=== PATIENT | female | born 2000 | race Asian ===

== ENCOUNTER 2023-09-11 20:16 | Emergency (ER) | payer BC, SELFPAY ==
[2023-09-11 20:17] VITALS: BP 118/74; PULSE 115; RESP 20; TEMP 38.6; O2SAT 99
[2023-09-11 20:26] VITALS: BP 124/76; PULSE 115; RESP 20; TEMP 38.6; O2SAT 99; BMI 21.9
--- NOTE | 2023-09-11 20:46 | ED.FEVER ---
HPI - Fever General Date Seen: 09/11/23 Chief Complaint: Fever Stated Complaint: fever of 104 Time Seen by Provider: 09/11/23 20:17 Source: patient Mode of arrival: ambulatory Limitations: no limitations History of Present Illness HPI Narrative: Patient is a 22-year-old female with a history of has in a presenting to the emergency department for a fever. She states fever started a couple days ago and overall her symptoms have been worse. Admits to muscle pain in her extremities. Has not had any nausea or vomiting but does states she has not had much of an appetite. Has had some mild dizziness but she states does seem slightly worse than her normal dizziness. She has been having issues with this since her concussion. Last took Tylenol 2 hours ago. Says fevers up to 104. She does have asthma feels mildly short of breath but has been using her inhalers. Denies headache, vision changes, diarrhea, constipation, weakness, numbness, vision changes Related Data Home Medications Medication Instructions Recorded Confirmed albuterol sulfate 1.25 mg/3 mL 1.25 mg continuous nebulization 09/11/23 09/11/23 solution for nebulization Q4H PRN benralizumab 30 mg/mL subcutaneous 30 mg subcut Q28D 09/11/23 09/11/23 auto-injector (Fasenra Pen) escitalopram oxalate 10 mg tablet 10 mg PO DAILY 09/11/23 09/11/23 fluticasone furoate 200 1 inh inhalation BID 09/11/23 09/11/23 mcg-vilanterol 25 mcg/dose inhalation powder levalbuterol tartrate 45 2 puff inhalation Q4H PRN wheezing 09/11/23 09/11/23 mcg/actuation aerosol inhaler montelukast 10 mg tablet 10 mg PO DAILY 09/11/23 09/11/23 Allergies Allergy/AdvReac Type Severity Reaction Status Date / Time No Known Drug Allergies Allergy Verified 09/11/23 20:32 Review of Systems Status of ROS Reports: 10 or more systems reviewed and unremarkable except as noted in History and below [facility] Medical History (Updated 09/11/23 @ 21:44 by Brian Jacinto, DO) Concussion ?S06.0XAA - Concussion with loss of consciousness status unknown, initial encounter (ICD-10) Asthma ?J45.909 - Unspecified asthma, uncomplicated (ICD-10) Surgical History (Updated 09/11/23 @ 20:58 by Tor Corbett RN) No significant past surgical history Social History Smoking Status: Never smoker Second hand tobacco smoke exposure: No How often do you have a drink containing alcohol: never How often do you have six or more drinks on one occasion: Never AUDIT-C Alcohol total score: 0 Non-prescribed substance use: denies use Exam Narrative Exam Narrative: Const: Well-nourished, Well-developed, in mild distress Eyes: PERRL, no conjunctival injection, and symmetrical lids HENT: Atraumatic external nose and ears. Moist mucous membranes. Neck: Symmetric, trachea midline, No thyromegaly. CVS: Tachycardic, No murmurs or gallops. Peripheral pulses 2+ and equal in all extremities RESP: Unlabored respiratory effort. Mild wheezing upper lobes GI: Nontender/Nondistended, No rebound or guarding. MSK:Extremities w/o deformity, Normal Active ROM Skin: Warm, Dry. No rashes or lesions. Neuro: Normal Muscle tone, No focal neurological deficits. Psych: Awake, Alert, & Oriented x3. Appropriate mood and affect. Const Vital Signs, click to edit/add: Vital Signs - 24 hr 09/11/23 20:17 09/11/23 20:26 Temperature 101.5 F H 101.5 F H Pulse Rate [Right Pulse Oximeter] 115 H 115 H Respiratory Rate 20 20 Blood Pressure [Left Arm] 118/74 Blood Pressure [Right Upper Arm] 124/76 Pulse Oximetry 99 99 Oxygen Delivery Method Room Air Room Air Course Vital Signs Vital signs: Initial Vital Signs Temperature 101.5 F H 09/11/23 20:17 Temperature Source Temporal Artery Scan 09/11/23 20:17 Pulse Rate 115 H 09/11/23 20:17 Pulse Rhythm Regular 09/11/23 20:17 Pulse Strength 3+ Normal 09/11/23 20:17 Respiratory Rate 20 09/11/23 20:17 Respiratory Effort Normal, Spontaneous, Non-Labored 09/11/23 20:17 Respiratory Depth Normal 09/11/23 20:17 Respiratory Pattern Normal 09/11/23 20:17 Blood Pressure 118/74 09/11/23 20:17 Blood Pressure Mean 88 09/11/23 20:17 Blood Pressure Position Sitting 09/11/23 20:17 Pulse Oximetry 99 09/11/23 20:17 Oxygen Delivery Method Room Air 09/11/23 20:17 Sepsis Recent Fever Within 48 Hours No 09/11/23 20:17 Sepsis New/Unexplained Change in Mental Status No 09/11/23 20:17 Sepsis Action Taken by Nursing No Action Required 09/11/23 20:17 Vital Signs Temperature 101.5 F H 09/11/23 20:17 Pulse Rate 115 H 09/11/23 20:17 Respiratory Rate 20 09/11/23 20:17 Blood Pressure 118/74 09/11/23 20:17 Pulse Oximetry 99 09/11/23 20:17 Oxygen Delivery Method Room Air 09/11/23 20:17 Temperature 101.5 F H 09/11/23 20:26 Pulse Rate 115 H 09/11/23 20:26 Respiratory Rate 20 09/11/23 20:26 Blood Pressure 124/76 09/11/23 20:26 Pulse Oximetry 99 09/11/23 20:26 Oxygen Delivery Method Room Air 09/11/23 20:26 Medications Administered Medications: Discontinued Medications Generic Name Dose Route Start Last Admin Trade Name Freq PRN Reason Stop Dose Admin Albuterol 2.5 mg 09/11/23 20:43 09/11/23 20:47 Albuterol Sulfate 2.5 Mg/3 Ml Vial.Neb NEB 09/11/23 20:44 2.5 mg ONCE ONE Administration Meclizine HCl 25 mg 09/11/23 20:43 09/11/23 20:47 Meclizine Hcl 25 Mg Tablet PO 09/11/23 20:44 25 mg ONCE ONE Administration MDM - Fever MDM Narrative Medical decision making narrative: Patient is a 22-year-old female presenting to emergency department for a fever. She does having some dizziness but has had issues with this since a concussion. Seems worse today meclizine was given. She likely has some kind of viral syndrome and this is causing some dehydration and her dizziness. She also had some mild wheezing in around of albuterol was given. She declined ibuprofen at this time. I do not believe imaging is necessary as she is otherwise doing well. COVID/flu/RSV test was ordered and she is positive for influenza. Symptoms have been going on for over 48 hours and she is otherwise doing well so Tamiflu is not indicated. I offered her meclizine to go home with but she says she does not feel like she needs it. Patient will be discharged home and she is agreeable to this plan. Lab Data Labs: Lab Results 09/11/23 Range/Units 20:22 SARS-CoV-2 (PCR) Negative SARS-CoV-2 (Negative) Influenza Type A (PCR) POSITIVE PCR FLU A A (Negative) Influenza Type B (PCR) Negative PCR FLU B (Negative) RSV (PCR) Negative PCR RSV (Negative) Discharge Plan Discharge Clinical Impression: Influenza Patient Disposition: Home, Self-Care Condition: Improved Instructions: Influenza (DC) Additional Instructions: Follow-up with the primary care provider if symptoms are persisting for multiple weeks. Return to emergency department for new or worsening symptoms. Prescriptions: No Action escitalopram oxalate 10 mg tablet 10 mg PO DAILY fluticasone furoate-vilanterol 200-25 mcg/dose blister with device 1 inh inhalation BID albuterol sulfate 1.25 mg/3 mL solution for nebulization 1.25 mg continuous nebulization Q4H PRN Patient Comments: ONE PREMIXED VIAL BY NEBULIZER UP TO 4 TIMES A DAY IF NEEDED FOR QUICK RELIEF ONLY Fasenra Pen 30 mg/mL auto-injector 30 mg subcut Q28D montelukast 10 mg tablet 10 mg PO DAILY levalbuterol tartrate 45 mcg/actuation HFA aerosol inhaler 2 puff INHALATION Q4H PRN (Reason: wheezing) Follow Up/Referrals: Howie Vinson MD [Primary Care Provider] - Stand Alone Forms: [employer] Paymentth Info Instructions
[2023-09-11] MEDS: ALBUTEROL SULFATE 2.5 MG/3 ML VIAL.NEB NEB (20:47)
[2023-09-11] MEDS: MECLIZINE HCL 25 MG TABLET PO (20:47)
[2023-09-11 21:07] LABS: PCR FLU A POSITIVE PCR FLU A (Negative); PCR FLU B Negative PCR FLU B (Negative); PCR RSV Negative PCR RSV (Negative); SARS PCR* Negative SARS-CoV-2 (Negative)
--- OUTSIDE RECORDS SUMMARY | 2023-09-11 21:16 | XMS_ITS | Continuity of Care Document ---
Author Name Unknown Organization [facility] Address [address] [place] [address] Care Team Providers Care Seismic Prospecting Observer Name Role Phone Irma Fulton MD Primary Care Physician [phone] Encounter [facility] [id number] Date(s): 04/01/23 - 04/01/23 [facility] [address] [place] [address] Discharge Disposition: Home Allergies, Adverse Reactions, Alerts Substance Reaction Severity Status piperacillin Unknown Active acyclovir topical Unknown Active nuts Moderate Active Assessment and Plan Future Scheduled Tests Referral* Follow Up [facility] [employer] 01/30/23 * Follow Up Pulmonary 07/10/22 * Follow Up [employer] [employer] [facility] 01/17/24 Immunizations Given and Recorded Vaccine Date Status Refusal Reason pneumococcal 23-valent vaccine 02/22/20 Given pneumococcal 23-valent vaccine 1 11/05/10 Given pneumococcal 23-valent vaccine 2 10/28/06 Given meningococcal group B vaccine 02/22/20 Given meningococcal group B vaccine 01/21/20 Given influenza virus vaccine, inactivated 05/28/19 Give n influenza virus vaccine, inactivated 05/28/19 Give n influenza virus vaccine, inactivated 3 08/02/17 Gi angelika influenza virus vaccine, inactivated 4 05/29/12 Gi angelika influenza virus vaccine, inactivated 5 04/22/11 Gi angelika influenza virus vaccine, inactivated 6 06/08/10 Gi angelika influenza virus vaccine, inactivated 7 04/29/08 Gi angelika influenza virus vaccine, inactivated 8 05/09/07 Gi angelika influenza virus vaccine, inactivated 9 05/08/06 Gi angelika influenza virus vaccine, inactivated 10 05/01/05 G iven influenza virus vaccine, inactivated 11 05/10/04 G iven human papillomavirus vaccine 12 11/06/16 Given human papillomavirus vaccine 13 01/19/16 Given human papillomavirus vaccine 14 10/31/15 Given meningococcal conjugate vaccine 15 11/06/16 Given meningococcal polysaccharide vaccine 16 11/11/11 G iven tetanus/diphtheria/pertussis, acel (Tdap 17 11/11/11 Given pneumococcal 13-valent vaccine 18 11/05/10 Given varicella virus vaccine 19 10/28/06 Given varicella virus vaccine 20 01/20/02 Given haemophilus b conjugate (HbOC) vaccine 21 09/30/05 Given haemophilus b conjugate (HbOC) vaccine 22 04/20/01 Given haemophilus b conjugate (HbOC) vaccine 23 02/13/01 Given measles/mumps/rubella virus vaccine 24 11/16/04 Gi angelika measles/mumps/rubella virus vaccine 25 10/20/01 Gi angelika diphtheria/tetanus/pertussis (DTaP) ped 26 11/16/04 Given diphtheria/tetanus/pertussis (DTaP) ped 27 04/14/02 Given diphtheria/tetanus/pertussis (DTaP) ped 28 04/20/01 Given diphtheria/tetanus/pertussis (DTaP) ped 29 02/13/01 Given diphtheria/tetanus/pertussis (DTaP) ped 30 00 Given poliovirus vaccine, inactivated 31 11/16/04 Given poliovirus vaccine, inactivated 32 04/14/02 Given poliovirus vaccine, inactivated 33 03/17/01 Given poliovirus vaccine, inactivated 34 01/12/01 Given hepatitis A pediatric vaccine 35 12/07/03 Given hepatitis A pediatric vaccine 36 12/07/02 Given palivizumab 37 11/08/02 Given palivizumab 38 10/08/02 Given palivizumab 39 09/10/02 Given palivizumab 40 08/06/02 Given palivizumab 41 07/09/02 Given palivizumab 42 06/11/02 Given palivizumab 43 05/12/02 Given pneumococcal 7-valent vaccine 44 04/14/02 Given hepatitis B pediatric vaccine 45 08/07/01 Given hepatitis B pediatric vaccine 46 03/17/01 Given hepatitis B pediatric vaccine 47 00 Given haemophilus b conjugate (PRP-T) vaccine 48 00 Given 1Result Comment: Administration Provider: System, System 2Result Comment: Administration Provider: System, System 3Result Comment: Administration Provider: System, System 4Result Comment: Administration Provider: System, System 5Result Comment: Administration Provider: System, System 6Result Comment: Administration Provider: System, System 7Result Comment: Administration Provider: System, System 8Result Comment: Administration Provider: System, System 9Result Comment: Administration Provider: System, System 10Result Comment: Administration Provider: System, System 11Result Comment: Administration Provider: System, System 12Result Comment: Performed by:YIMI George Fenika 13Result Comment: Performed by:YIMI George Fenika 14Result Comment: Performed by:YIMI George Fenika 15Result Comment: Performed by:YIMI George Fenika 16Result Comment: Administration Provider: System, System 17Result Comment: Administration Provider: System, System 18Result Comment: Administration Provider: System, System 19Result Comment: Administration Provider: System, System 20Result Comment: Administration Provider: System, System 21Result Comment: Administration Provider: System, System 22Result Comment: Administration Provider: System, System 23Result Comment: Administration Provider: System, System 24Result Comment: Administration Provider: System, System 25Result Comment: Administration Provider: System, System 26Result Comment: Administration Provider: System, System 27Result Comment: Administration Provider: System, System 28Result Comment: Administration Provider: System, System 29Result Comment: Administration Provider: System, System 30Result Comment: Administration Provider: System, System 31Result Comment: Administration Provider: System, System 32Result Comment: Administration Provider: System, System 33Result Comment: Administration Provider: System, System 34Result Comment: Administration Provider: System, System 35Result Comment: Administration Provider: System, System 36Result Comment: Administration Provider: System, System 37Result Comment: Administration Provider: System, System 38Result Comment: Administration Provider: System, System 39Result Comment: Administration Provider: System, System 40Result Comment: Administration Provider: System, System 41Result Comment: Administration Provider: System, System 42Result Comment: Administration Provider: System, System 43Result Comment: Administration Provider: System, System 44Result Comment: Administration Provider: System, System 45Result Comment: Administration Provider: System, System 46Result Comment: Administration Provider: System, System 47Result Comment: Administration Provider: System, System 48Result Comment: Administration Provider: System, System Medications Augmentin 875 mg-125 mg oral tablet 1 tab(s) Dosing ingredient: amoxicillin (as trihydrate), PO, q12hrs, # 14 tab(s), 0 Refill(s), Substitution Permitted, Pharmacy: [facility] [id number] [facility], 1 tab(s) PO q12hrs Start Date: 08/02/20 Status: Ordered Breo Ellipta 200 mcg-25 mcg/inh inhalation powder 1 puff(s), inhaled, daily, # 3 each, 0 Refill(s), Substitution Permitted, Pharmacy: [facility] [id number] [facility], 1 puff(s) inhaled daily, 62, 07/19/21 14:56:00 PST, HEIGHT, inch(es), 50.6, 07/19/21 14:56:00 PST, WEIGHT, kg Start Date: 10/29/22 Status: Ordered budesonide 0.5 mg/2 mL inhalation suspension See Instructions, Instructions: INAHALE 2 ML VIA NEBULIZER TWICE DAILY, # 120 mL, 0 Refill(s), Substitution Permitted, Pharmacy: [facility] [id number] [facility], INAHALE 2 ML VIA NEBULIZER TWICE DAILY, 62, 07/19/21 14:56:00 PST, HEIGHT, inch(es), 50.6, 07/19/21 14:56:00 PST, WEIGHT, kg Start Date: 08/13/21 Status: Ordered escitalopram 10 mg oral tablet 10 mg = 1 tab(s), PO, daily, # 30 tab(s), 0 Refill(s), Substitution Permitted Start Date: 07/19/21 Status: Ordered Fasenra Pen 30 mg/mL subcutaneous solution 0 Refill(s), Substitution Permitted Start Date: 07/19/21 Status: Ordered levalbuterol 45 mcg/inh inhalation aerosol 2 puff(s), inhaled, q4h, # 15 gm, 2 Refill(s), Substitution Permitted, Pharmacy: [facility] [id number] [facility], 2 puff(s) inhaled q4h, 62, 07/19/21 14:56:00 PST, HEIGHT, inch(es), 53.63, 02/10/23 16:15:00 PDT,kg, WEIGHT Start Date: 04/01/23 Status: Ordered Lo Loestrin Fe oral tablet 1 tab(s), PO, daily, # 84 tab(s), 3 Refill(s), MAXWELL, Pharmacy: [facility] [id number] [facility], 1 tab(s) PO daily, 62, 07/19/21 14:56:00 PST, HEIGHT, inch(es), 53.63, 02/10/23 16:15:00 PDT, WEIGHT, kg Start Date: 02/10/23 Status: Ordered Ritalin 5 mg oral tablet 5 mg = 1 tab(s), PO, 2xdaily, # 60 tab(s), 0 Refill(s), Substitution Permitted, Pharmacy: [id number], 1 tab(s) PO 2xdaily Start Date: 09/10/19 Status: Ordered Singulair 10 mg oral tablet 10 mg = 1 tab(s), PO, daily, # 90 tab(s), 0 Refill(s), Substitution Permitted, Pharmacy: [facility] [id number] [facility], 1 tab(s) PO daily, 62, 07/19/21 14:56:00 PST, HEIGHT, inch(es), 50.6, 07/19/21 14:56:00 PST, WEIGHT, kg Start Date: 10/29/22 Status: Ordered Problem List Condition Confirmation Course Effective Dates Status H ealth Status Informant Anxiety Confirmed Active Asthma Confirmed Active Attention deficit hyperactivity disorder 1 Confirmed 07/07/20 Active 1Outside Source Comment: Overview: takes ritalin once / day has been on it since 5th grade usually only takes during school days no changes in dosage. no difficulty with sleep. tolerating Social History Social History Type Response Smoking Status Never (less than 100 in lifetime); Tobacco Used Last 365 Days No entered on: 01/16/23 Sex Female Patient Care team information Care Team Personnel Name: MD Ozuna Soha A Position: Ambulatory Physician - CHOCOLATE REFINING ROLLER Member Role: OBGYN Address: Address: Miladys Ozuna MD [address] [place] [address]- Name: MD Fulton Lettie Member Role: Attributed Physician Address: Address: Irma Fulton MD [facility] [address], [address] [place] [address]- [place]
--- OUTSIDE RECORDS SUMMARY | 2023-09-11 21:16 | XMS_ITS ---
Author Name Unknown Organization [facility] Address [address] [place] [address] Care Team Providers Care Rn Clinician Name Role Phone Irma Fulton MD Primary Care Physician Encounter [facility] [address] [id number] Date(s): 10/28/22 - 10/28/22 [facility] [address] [place] [id number] [place] Discharge Disposition: Home Problem List Condition Confirmation Course Effective Dates Status Health St atus Informant Asthma Confirmed Active Allergies, Adverse Reactions, Alerts No Known Medication Allergies Substance Reaction Severity Status nuts Moderate Active Medications Augmentin 875 mg-125 mg oral tablet 1 tab(s) Dosing ingredient: amoxicillin (as trihydrate), PO, q12hrs, # 14 tab(s), 0 Refill(s), Substitution Permitted, Pharmacy: [facility] [id number] [facility], 1 tab(s) PO q12hrs Start Date: 08/02/20 Status: Ordered Breo Ellipta 200 mcg-25 mcg/inh inhalation powder 1 puff(s), inhaled, daily, # 3 each, 0 Refill(s), Substitution Permitted, Pharmacy: [facility] [id number] [facility], 1 puff(s) inhaled daily, 62, 07/19/21 14:56:00 PST, HEIGHT, inch(es), 50.6, 07/19/21 14:56:00 PST, WEIGHT, kg Start Date: 10/28/22 Status: Ordered budesonide 0.5 mg/2 mL inhalation suspension See Instructions, Instructions: INAHALE 2 ML VIA NEBULIZER TWICE DAILY, # 120 mL, 0 Refill(s), Substitution Permitted, Pharmacy: [facility] [id number] [facility], INAHALE 2 ML VIA NEBULIZER TWICE DAILY, 62, 07/19/21 14:56:00 PST, HEIGHT, inch(es), 50.6, 07/19/21 1... Start Date: 08/13/21 Status: Ordered escitalopram 10 mg oral tablet 10 mg = 1 tab(s), PO, daily, # 30 tab(s), 0 Refill(s), Substitution Permitted Start Date: 07/19/21 Status: Ordered Fasenra Pen 30 mg/mL subcutaneous solution 0 Refill(s), Substitution Permitted Start Date: 07/19/21 Status: Ordered Ritalin 5 mg oral tablet 5 mg = 1 tab(s), PO, 2xdaily, # 60 tab(s), 0 Refill(s), Substitution Permitted, Pharmacy: [facility] [id number], 1 tab(s) PO 2xdaily Start Date: 09/10/19 Status: Ordered Singulair 10 mg oral tablet 10 mg = 1 tab(s), PO, daily, # 90 tab(s), 0 Refill(s), Substitution Permitted, Pharmacy: [facility] [id number] [facility], 1 tab(s) PO daily, 62, 07/19/21 14:56:00 PST, HEIGHT, inch(es), 50.6, 07/19/21 14:56:00 PST, WEIGHT, kg Start Date: 10/28/22 Status: Ordered Xopenex 1.25 mg/3 mL inhalation solution 1.25 mg = 3 mL, NEB, 3xdaily, PRN shortness of breath or wheezing, # 270 each, 0 Refill(s), Substitution Permitted, Pharmacy: [facility] [id number] [facility], 3 mL NEB 3xdaily,PRN:shortness of breath or wheezing, 62, 01/21/20 14:22:00 PDT, HEIGHT, inch(es), 48.7,... Start Date: 07/12/21 Status: Ordered Xopenex HFA 45 mcg/inh inhalation aerosol 2 puff(s), inhaled, q4h, # 15 gm, 2 Refill(s), Substitution Permitted, 62, 07/19/21 14:56:00 PST, HEIGHT, inch(es), 50.6, 07/19/21 14:56:00 PST, kg, WEIGHT Start Date: 02/07/22 Status: Ordered Immunizations Given and Recorded Vaccine Date Status [...] 05/09/07 Gi angelika influenza virus vaccine, inactivated 05/08/06 Gi angelika influenza virus vaccine, inactivated [...] System 48Result Comment: Administration Provider: System, System Social History Social History Type Response
--- OUTSIDE RECORDS SUMMARY | 2023-09-11 21:16 | XMS_ITS | Continuity of Care Document ---
Author Name Unknown Organization [facility] Address [address] [place] [address]- Care Team Providers Care Finger Waver Name Role Phone Irma Fulton MD Primary Care Physician Encounter [facility] [id number] Date(s): 01/16/23 - 01/16/23 [facility] [address] [place] [address]- Discharge Disposition: Home Attending Physician: MD Ozuna Soha A Admitting Physician: MD Ozuna Soha A Allergies, Adverse Reactions, Alerts Substance Reaction Severity Status piperacillin Unknown Active acyclovir topical Unknown Active nuts Moderate Active Assessment and Plan Future Appointments Appointment Date:02/10/2023 03:45:00 PM Scheduled Provider:MD Ozuna Soha A Location:[facility] Appointment Type: BUILDING ILLUMINATING ENGINEER Ultrasound Diagnostic Tests Pending * Testosterone Total + Free 01/16/23 Future Scheduled Tests Referral* Follow Up BUILDING ILLUMINATING ENGINEER Women's Health 01/30/23 * Follow Up Pulmonary 01/17/22 * Follow Up Pulmonary 07/10/22 * Follow Up BUILDING ILLUMINATING ENGINEER Women's Health [facility] 01/17/24 Immunizations Given [...] System, System 12Result Comment: Performed by:YIMI George Fenvincent 13Result Comment: Performed by:YIMI George Fenvincent 14Result Comment: Performed by:YIMI George Fenvincent 15Result Comment: Performed by:YIMI George Fenvincent 16Result Comment: Administration Provider: System, System 17Result [...] 14 tab(s), 0 Refill(s), Substitution Permitted, Pharmacy: [facility] [id number] [facility], 1 tab(s) PO q12hrs Start Date: 08/02/20 Status: Ordered Breo Ellipta 200 mcg-25 mcg/inh inhalation powder 1 puff(s), inhaled, daily, # 3 each, 0 Refill(s), Substitution Permitted, Pharmacy: [facility] [id number] [facility], 1 puff(s) inhaled daily, 62, 07/19/21 14:56:00 PST, HEIGHT, inch(es), 50.6, 07/19/21 14:56:00 PST, WEIGHT, kg Start Date: 10/29/22 Status: Ordered budesonide 0.5 mg/2 mL inhalation suspension See Instructions, Instructions: INAHALE 2 ML VIA NEBULIZER TWICE DAILY, # 120 mL, 0 Refill(s), Substitution Permitted, Pharmacy: [facility] [id number] [facility], INAHALE 2 ML VIA NEBULIZER [...] 60 tab(s), 0 Refill(s), Substitution Permitted, Pharmacy: [facility] [id number], 1 tab(s) PO 2xdaily Start Date: 09/10/19 Status: Ordered Singulair 10 mg oral tablet 10 mg = 1 tab(s), PO, daily, # 90 tab(s), 0 Refill(s), Substitution Permitted, Pharmacy: [facility] [id number] [facility], 1 tab(s) PO daily, 62, 07/19/21 14:56:00 PST, HEIGHT, inch(es), 50.6, 07/19/21 14:56:00 PST, WEIGHT, kg Start Date: 10/29/22 Status: Ordered Xopenex 1.25 mg/3 mL inhalation solution 1.25 mg = 3 mL, NEB, 3xdaily, PRN shortness of breath or wheezing, # 270 each, 0 Refill(s), Substitution Permitted, Pharmacy: [facility] [id number] [facility], 3 mL NEB 3xdaily,PRN:shortness of breath or wheezing, 62, 01/21/20 14:22:00 PDT, HEIGHT, inch(es), 48.7,... Start Date: 07/12/21 Status: Ordered Xopenex HFA 45 mcg/inh inhalation aerosol 2 puff(s), inhaled, q4h, # 15 gm, 2 Refill(s), Substitution Permitted, 62, 07/19/21 14:56:00 PST, HEIGHT, inch(es), 50.6, 07/19/21 14:56:00 PST, kg, WEIGHT Start Date: 02/07/22 Status: Ordered Problem List Condition Confirmation Course Effective Dates Status H ealth Status Informant Anxiety Confirmed Active Asthma Confirmed Active Attention deficit hyperactivity disorder 1 Confirmed 07/07/20 Active 1Outside Source Comment: Overview: takes ritalin once / day has been on it since 5th grade usually only takes during school days no changes in dosage. no difficulty with sleep. tolerating Results Laboratory List Name Date Dehydroepiandrosterone Sulfate (DHEA Sul fate) 01/16/23 Estradiol Level 01/16/23 FSH (Follicle Stimulating Hormone) Hemoglobin A1c 01/16/23 LH (Luteinizing Hormone) 01/16/23 Prolactin 01/16/23 TSH (Thyroid Stimulating Hormone) 3 Most recent to oldest [Reference Range]: 1 TSH [0.350-4.940 micro-IntUnits/mL] 1.15 5 micro-IntUnits/mL (01/16/23 3:15 PM) FSH 6.50 cj-IntUnits/ mL *NA* (01/16/23 3:15 PM) Luteinizing Hormone (LH) 21.81 cj-Int Units/mL *NA* (01/16/23 3:15 PM) Prolactin 11.80 ng/mL *NA* (01/16/23 3:15 PM) DHEA Sulfate [83-377 mcg/dL] 202 mcg/dL 1 *NA* (01/16/23 3:15 PM) Estradiol 36.8 pg/mL 2 *NA* (01/16/23 3:15 PM) Hemoglobin A1c [4.8-6.0 %] 5.1 % (01/16/23 3:15 PM) 1Result Comment: Test Performed by: [facility] [place] [place] [address] Electrolog Operator: Todd Jean-Baptiste M.D. Ph.D.; CLIA# [id number] 2Result Comment: REFERENCE VALUE Premenopausal: 15-350 pg/mL Postmenopausal: <10 pg/mL Estradiol concentrations vary widely throughout the menstrual cycle. Test Performed by: [facility] [place] [address] Electrolog Operator: Todd Jean-Baptiste M.D. Ph.D.; CLIA# [id number] Social History Social History Type Response Smoking Status Never (less than 100 in lifetime); Tobacco Used Last 365 Days No entered on: 01/16/23 Sex Female Patient Care team information Care Team Personnel Name: MD Fulton Lettie Member Role: Attributed Physician Address: Address: Irma Fulton MD [facility] [address], [address] [place] [address]- Name: MD Ozuna Soha A Position: Ambulatory Physician - WAREHOUSE FOREMAN Member Role: OBGYN Address: Address: Miladys Ozuna MD [address] [place] [address] [place] [id number]
--- OUTSIDE RECORDS SUMMARY | 2023-09-11 21:16 | XMS_ITS ---
Author Name Awilda Pham Organization Unknown Care Team Providers Care Forest Ranger Technician Name Role Phone Awilda Pham Unavailable Unavailable Awilda Pham Unavailable Unavailable ALLERGIES * No known allergy CHIEF COMPLAINT * P/C: VRC: positive covid test FUNCTIONAL AND COGNITIVE STATUS * No functional and cogntive status documented IMMUNIZATIONS * No immunizations documented MEDICATIONS Medication Start Date Stop Date Modified Date Dose Formulation Route Frequency Status Pulmicort Respules Unknown 9 by jet nebbulizer with comby rectumessed air once a day active Xopenex Unknown 9 by nebulizer Up to every 6 hours for acute wheezing (may double dose if severe attack) active Xopenex 9 1.25 mg/3 mL solution for nebulization by nebulizer Up to every 6 hours for acute wheezing (may double dose if severe attack) active prednisone 9 20 mg tablet by mouth 3 tabs daily x 2 days, 2 tabs daily x 2 days, 1 tab daily x 2 days, 1/2 tab for 1 day active Paxlovid 03/15/2023 300 mg (150 mg x 2)-10 0 mg tablets,dose pack by mouth Follow blister pack instructions active albuterol sulfate 03/15/2023 1.25 mg/3 mL solution for nebulization by nebulizer Up to 4 times a day if needed for quick relief only active PLAN OF CARE * No plan of care documented PROBLEMS * No clinical problems documented PROCEDURES * No procedure documented REASON FOR REFERRAL No reason for referral documented REASON FOR VISIT Exam started at 12:30 03/15/2023. Have reviewed staff history and I concur. Have reviewed and agreewith staff notes. History comes from patient. Able to get a good history.Spoke to patient over virtual care visit. Patient is a healthy 22-year-old female with PMH of asthma and allergies with sx of cough, sore throat, body aches that started last night. h/o positive covid test today. Patient denies severe symptoms such as CP, SOB, dizziness. Patient is vaccinated against COVID. No hx of kidney issues. Patient is requesting Paxlovid. Patient takes Lexapro and Singular daily. Patient is requesting a refill on albuterol nebulized solution as well. RESULTS * No lab result documented SOCIAL HISTORY * No smoking status documented VITAL SIGNS * Height: 62 inch ENCOUNTERS * Covid 19 - confirmed by antigen screen * Sore throat * Cough * Asthma
--- OUTSIDE RECORDS SUMMARY | 2023-09-11 21:16 | XMS_ITS | Continuity of Care Document ---
Author Name Unknown Organization [facility] Address [address] [place] [address] Care Team Providers Care Welder Fitter Apprentice Name Role Phone Irma Fulton MD Primary Care Physician [phone] Encounter [facility] [id number] Date(s): 07/14/23 - 07/14/23 [facility] [address] [facility] [address] [place] [address] Encounter Diagnosis Asthma(Discharge Diagnosis) - 07/10/23 Body mass index [BMI] 22.0-22.9, adult(Discharge Diagnosis) - 07/14/23 Discharge Disposition: Home Attending Physician: MD Reyna Richard H Referring Physician: MD Reyna Richard H Allergies, Adverse Reactions, Alerts Substance Reaction Severity Status piperacillin Unknown Active acyclovir topical Unknown Active nuts Moderate Active Assessment and Plan Future Appointments Appointment Date:01/19/2024 11:00:00 AM Scheduled Provider:MD Reyna Richard H [facility] Pulmonary Appointment Type:PULM Follow Up Future Scheduled Tests Referral* Follow Up GENERATOR REBUILDER Women's Health 01/30/23 * Follow Up Pulmonary 07/10/22 * Follow Up Pulmonary 01/13/24 * Follow Up GENERATOR REBUILDER Women's Health [facility] 01/17/24 Immunizations Given [...] George Fenika 14Result Comment: Performed by:YIMI George Fenvincent 15Result [...] 48Result Comment: Administration Provider: System, System Medications albuterol 1.25 mg/3 mL (0.042%) inhalation solution See Instructions, Instructions: ONE PREMIXED VIAL BY NEBULIZER UP TO 4 TIMES A DAY IF NEEDED FOR QUICK RELIEF ONLY, # 75 mL, 0 Refill(s), Substitution Permitted, Pharmacy: [id number] [facility], PT NEEDS NEW RX, ONE PREMIXED VIAL BY NEBULIZER UP TO 4 TIMES A DAY IF NEEDED FOR QUICK RELIEF ONLY, 62, 07/19/21 14:56:00 PST, HEIGHT, inch(es), 53.63, 02/10/23 16:15:00 PDT, WEIGHT, kg Start Date: 06/25/23 Status: Ordered Augmentin 875 mg-125 mg oral tablet 1 tab(s) Dosing ingredient: amoxicillin (as trihydrate), PO, q12hrs, # 14 tab(s), 0 Refill(s), Substitution Permitted, Pharmacy: [facility] [id number] [facility], 1 tab(s) PO q12hrs Start Date: 08/02/20 Status: Ordered Breo Ellipta 200 mcg-25 mcg/inh inhalation powder 1 puff(s), inhaled, daily, # 3 each, 4 Refill(s), Substitution Permitted, Pharmacy: [facility] [id number] [facility], 1 puff(s) inhaled daily,x30 day(s), 62, 07/14/23 15:38:00 PST, HEIGHT, inch(es), 56, 07/14/23 15:38:00 PST, WEIGHT, kg Start Date: 07/14/23 Stop Date: 12/11/23 Status: Ordered budesonide 0.5 mg/2 mL inhalation suspension See Instructions, Instructions: INAHALE 2 ML VIA NEBULIZER TWICE DAILY, # 120 mL, 0 Refill(s), Substitution Permitted, Pharmacy: [facility] [id number] [facility], INAHALE 2 ML VIA NEBULIZER [...] mcg/inh inhalation aerosol 2 puff(s), inhaled, q4h, PRN PRN for wheezing, # 15 gm, 5 Refill(s), Substitution Permitted, Pharmacy: [facility] [id number] [facility], 2 puff(s) inhaled q4h,PRN:for wheezing, 62, 07/14/23 15:38:00 PST, HEIGHT, inch(es), 56, 07/14/23 15:38:00 PST, kg, WEIGHT Start Date: 07/14/23 Status: Ordered levalbuterol 45 mcg/inh inhalation aerosol 2 puff(s), inhaled, q4h, # 15 gm, 2 Refill(s), Substitution Permitted, Pharmacy: [facility] [id number] [facility], 2 puff(s) inhaled q4h, 62, 07/19/21 14:56:00 PST, HEIGHT, inch(es), 53.63, 02/10/23 16:15:00 PDT,kg, WEIGHT Start Date: 04/01/23 Status: Ordered Lo Loestrin Fe oral tablet 1 tab(s), PO, daily, # 84 tab(s), 3 Refill(s), [facility], Pharmacy: [id number], 1 tab(s) PO daily, 62, 07/19/21 14:56:00 PST, HEIGHT, inch(es), 53.63, 02/10/23 16:15:00 PDT, WEIGHT, kg Start Date: 02/10/23 Status: Ordered montelukast 10 mg oral tablet See Instructions, Instructions: TAKE 1 TABLET BY MOUTH EVERY DAY, # 90 tab(s), 4 Refill(s), Substitution Permitted, Pharmacy: [facility] [id number] [facility], TAKE 1 TABLET BY MOUTH EVERY DAY, 62, 07/14/23 15:38:00 PST, HEIGHT, inch(es), 56, 07/14/23 15:38:00 PST, WEIGHT, kg Start Date: 07/14/23 Status: Ordered Ritalin 5 mg oral tablet 5 mg = 1 tab(s), PO, 2xdaily, # 60 tab(s), 0 Refill(s), Substitution Permitted, Pharmacy: [facility] [id number], 1 tab(s) PO 2xdaily Start Date: 09/10/19 Status: Ordered Problem List Condition Confirmation Course Effective Dates Status H ealth Status Informant Anxiety Confirmed Active Asthma Confirmed Active Attention deficit hyperactivity disorder 1 Confirmed 07/07/20 Active 1Outside Source Comment: Overview: takes ritalin once / day has been on it since 5th grade usually only takes during school days no changes in dosage. no difficulty with sleep. tolerating Vital Signs Most recent to oldest [Reference Range]: 1 Blood Pressure [100-145/50-90 mmHg] 118/ 74mmHg (07/14/23 3:38 PM) Peripheral Pulse Rate [50-121 bpm] 75 bp m (07/14/23 3:38 PM) Oxygen Saturation [90-100 %] 98 % (07/14/23 3:38 PM) HEIGHT [36-86 inch(es)] 62 inch(es) (07/14/23 3:38 PM) WEIGHT [12-320 kg] 56 kg (07/14/23 3:38 PM) Social History Social History Type Response Smoking Status Never (less than 100 in lifetime); Tobacco Used Last 365 Days No entered on: 01/16/23 Sex Female Patient Care team information Care Team Personnel Name: MD Ozuna Soha A Position: Ambulatory Physician - MANUFACTURING TEST ENGINEER Member Role: OBGYN Address: Address: Miladys Ozuna MD [address] [place] [address] [place] [id number]- Name: MD Fulton Lettie Member Role: Attributed Physician Address: Address: Irma Fulton MD [facility] [address], [address] [place] [address]- [place]
--- OUTSIDE RECORDS SUMMARY | 2023-09-11 21:16 | XMS_ITS | Continuity of Care Document ---
Author Name Unknown Organization [facility] Address [address] [place] [address] Care Team Providers Care Bulldozer Mechanic Name Role Phone Irma Fulton MD Primary Care Physician Encounter [facility] [id number] Date(s): 02/10/23 - 02/10/23 [facility] [address] [place] [address] [place] Encounter Diagnosis PCOS (polycystic ovarian syndrome)(Discharge Diagnosis) - 02/10/23 Discharge Disposition: Home Attending Physician: MD Ozuna Soha A Referring Physician: MD Ozuna Soha A Allergies, Adverse Reactions, Alerts Substance Reaction Severity Status piperacillin Unknown Active acyclovir topical Unknown Active nuts Moderate Active Assessment and Plan Diagnostic Tests Pending * Testosterone Total + Free 05/13/23 Future Scheduled Tests Referral* Follow Up SENIOR SOLUTIONS CONSULTANT Women's Health 01/30/23 * Follow Up Pulmonary 01/17/22 * Follow Up Pulmonary 07/10/22 * Follow Up SENIOR SOLUTIONS CONSULTANT Women's Health Well Woman 01/17/24 Immunizations Given [...] 14 tab(s), 0 Refill(s), Substitution Permitted, Pharmacy: [facility] [id number] [facility], 1 tab(s) PO q12hrs Start Date: 08/02/20 Status: Ordered Breo Ellipta 200 mcg-25 mcg/inh inhalation powder 1 puff(s), inhaled, daily, # 3 each, 0 Refill(s), Substitution Permitted, Pharmacy: [facility] [id number] [facility], 1 puff(s) inhaled daily, 62, 07/19/21 14:56:00 PST, HEIGHT, inch(es), 50.6, 07/19/21 14:56:00 PST, WEIGHT, kg Start Date: 10/29/22 Status: Ordered budesonide 0.5 mg/2 mL inhalation suspension See Instructions, Instructions: INAHALE 2 ML VIA NEBULIZER TWICE DAILY, # 120 mL, 0 Refill(s), Substitution Permitted, Pharmacy: [facility] [id number] [facility], INAHALE 2 ML VIA NEBULIZER TWICE DAILY, 62, 07/19/21 14:56:00 PST, HEIGHT, inch(es), 50.6, 07/19/21 1... Start Date: 08/13/21 Status: Ordered escitalopram 10 mg oral tablet 10 mg = 1 tab(s), PO, daily, # 30 tab(s), 0 Refill(s), Substitution Permitted Start Date: 07/19/21 Status: Ordered Fasenra Pen 30 mg/mL subcutaneous solution 0 Refill(s), Substitution Permitted Start Date: 07/19/21 Status: Ordered Lo Loestrin Fe oral tablet 1 tab(s), PO, daily, # 84 tab(s), 3 Refill(s), [facility], Pharmacy: [facility] [id number] [facility], 1 tab(s) PO daily, 62, 07/19/21 14:56:00 PST, HEIGHT, inch(es), 53.63, 02/10/23 16:15:00 PDT, WEIGHT, kg Start Date: 02/10/23 Status: Ordered Ritalin 5 mg oral tablet 5 mg = 1 tab(s), PO, 2xdaily, # 60 tab(s), 0 Refill(s), Substitution Permitted, Pharmacy: [id number], 1 tab(s) PO 2xdaily Start Date: 09/10/19 Status: Ordered Singulair 10 mg oral tablet 10 mg = 1 tab(s), PO, daily, # 90 tab(s), 0 Refill(s), Substitution Permitted, Pharmacy: [facility] [id number] [facility], 1 tab(s) PO daily, 62, 07/19/21 14:56:00 PST, HEIGHT, inch(es), 50.6, 07/19/21 14:56:00 PST, WEIGHT, kg Start Date: 10/29/22 Status: Ordered Xopenex 1.25 mg/3 mL inhalation solution 1.25 mg = 3 mL, NEB, 3xdaily, PRN shortness of breath or wheezing, # 270 each, 0 Refill(s), Substitution Permitted, Pharmacy: [facility] [id number] [facility], 3 mL NEB 3xdaily,PRN:shortness of [...] [Reference Range]: 1 Blood Pressure [100-145/50-90 mmHg] 125/ 80mmHg (02/10/23 4:15 PM) WEIGHT [12-320 kg] 53.63 kg (02/10/23 4:15 PM) Social History Social History Type Response Smoking Status Never (less than 100 in lifetime); Tobacco Used Last 365 Days No entered on: 01/16/23 Sex Female Patient Care team information Care Team Personnel Name: MD Fulton Lettie Member Role: Attributed Physician Address: Address: Irma Fulton MD [facility] [address], [address] [place], [place] [address] Name: MD Ozuna Soha A Position: Ambulatory Physician - OPTIMIZATION ENGINEER Member Role: OBGYN Address: Address: Miladys Ozuna MD [address] [place] [address] [address] [place], [place] [address]
--- OUTSIDE RECORDS SUMMARY | 2023-09-11 21:16 | XMS_ITS | Continuity of Care Document ---
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(Discharge Diagnosis) - 01/16/23 Irregular menses(Discharge Diagnosis) - 01/16/23 Discharge Disposition: Home Attending Physician: MD Ozuna Soha A Referring Physician: MD Ozuna Soha A Allergies, Adverse Reactions, Alerts Substance Reaction Severity Status piperacillin Unknown Active acyclovir topical Unknown Active nuts Moderate Active Assessment and Plan Future Appointments Appointment Date:02/10/2023 03:45:00 PM Scheduled Provider:MD Ozuna Soha A Location:[facility] Appointment Type: SHOT CORE DRILL OPERATOR HELPER Ultrasound Future Scheduled Tests Referral* Follow Up SHOT CORE DRILL OPERATOR HELPER Women's Health 01/30/23 * Follow Up Pulmonary 01/17/22 * Follow Up Pulmonary 07/10/22 * Follow Up SHOT CORE DRILL OPERATOR HELPER Women's Health Well Woman 01/17/24 Immunizations Given [...] 14 tab(s), 0 Refill(s), Substitution Permitted, Pharmacy: [facility] [id number] [facility], 1 tab(s) PO q12hrs Start Date: 08/02/20 Status: Ordered Breo Ellipta 200 mcg-25 mcg/inh inhalation powder 1 puff(s), inhaled, daily, # 3 each, 0 Refill(s), Substitution Permitted, Pharmacy: [facility] [id number] [facility], 1 puff(s) inhaled daily, 62, 07/19/21 14:56:00 PST, HEIGHT, inch(es), 50.6, 07/19/21 14:56:00 PST, WEIGHT, kg Start Date: 10/29/22 Status: Ordered budesonide 0.5 mg/2 mL inhalation suspension See Instructions, Instructions: INAHALE 2 ML VIA NEBULIZER TWICE DAILY, # 120 mL, 0 Refill(s), Substitution Permitted, Pharmacy: [facility] [id number] [facility], INAHALE 2 ML VIA NEBULIZER [...] 60 tab(s), 0 Refill(s), Substitution Permitted, Pharmacy: [facility] [id number], 1 tab(s) PO 2xdaily Start Date: 09/10/19 Status: Ordered Singulair 10 mg oral tablet 10 mg = 1 tab(s), PO, daily, # 90 tab(s), 0 Refill(s), Substitution Permitted, Pharmacy: [facility] [id number] [facility], 1 tab(s) PO daily, 62, 07/19/21 14:56:00 PST, HEIGHT, inch(es), 50.6, 07/19/21 14:56:00 PST, WEIGHT, kg Start Date: 10/29/22 Status: Ordered Xopenex 1.25 mg/3 mL inhalation solution 1.25 mg = 3 mL, NEB, 3xdaily, PRN shortness of breath or wheezing, # 270 each, 0 Refill(s), Substitution Permitted, Pharmacy: [facility] [id number] [facility], 3 mL NEB 3xdaily,PRN:shortness of [...] in dosage. no difficulty with sleep. tolerating Procedures Procedure Date Related Diagnosis Body Site Status Collection of venous blood b y venipuncture 01/16/23 Completed Collection of venous blood b y venipuncture 01/16/23 Completed Collection of venous blood b y venipuncture 01/16/23 Completed Vital Signs Most recent to oldest [Reference Range]: 1 Blood Pressure [100-145/50-90 mmHg] 125/ 80mmHg (01/16/23 3:05 PM) WEIGHT [12-320 kg] 53.63 kg (01/16/23 3:05 PM) Social History Social History Type Response Smoking Status Never (less than 100 in lifetime); Tobacco Used Last 365 Days No entered on: 01/16/23 Sex Female Hospital Discharge Instructions Patient Education 01/16/2023 15:34:01 Understanding Periods Understanding Periods Having a period is a normal, healthy part of becoming and being a woman. A period is the result of a cycle that takes place inside a woman's body. This menstrual cycle makes it possible for women to have babies. The cycle begins with the first day of bleeding. In the middle of the cycle, ovulation occurs. This is??when an egg is released and begins its journey from the ovary to the uterus. Gender words are used here to talk about anatomy and health risk. Please use this information in a way that works best for you and your provider as you talk about your care. An egg is released During each cycle,??one egg grows and is released from an ovary. It finds its way to the fallopian tube.??(If the egg and a man???s sperm meet, a woman may become .) The egg travels through a tube The egg moves through the fallopian tube toward the uterus.?? The lining thickens The lining of the uterus grows thicker. This lining is made up of blood, tissue, and fluid. (The lining will nourish a growing baby during .) The egg and lining are shed About once a month, if does not occur, the egg and the lining of the uterus are shed through the vagina. This is called a period. (A period does not happen during .) ?? 6684-8074 [employer]. All rights reserved. This information is not intended as a substitute for professional medical care. Always follow your healthcare professional's instructions. 01/16/2023 15:33:54 Breast Self-Exam (BSE) Breast Health: Breast Self-Awareness What is breast self-awareness? Breast self-awareness is knowing how your breasts normally look and feel. Your breasts change as you go through different stages of your life. So it???s important to learn what is normal for your breasts. Knowing about your breasts helps you spot any changes in them right away. Tell your healthcareprovider about any changes. Why is breast self-awareness important? Many experts now say that women should focus on breast self-awareness instead of doing a breast self-exam (BSE). These experts include the [place] [employer] and the [place] [employer]. Some experts even advise not teaching women to do a BSE. That???s because research hasn???t shown that doing BSEs helps. Breast self-awareness is different than a BSE. It isn???t about following a certain method and schedule. It???s about knowing what's normal for your breasts. That way you can spot even small changes right away. If you see any changes, tell your healthcare provider. Changes to look for Call your healthcare provider if you find any changes in your breasts that worry you. These changesmay be: ???A lump ???Nipple discharge other than breastmilk, especially if it's bloody ???Swelling ???A change in size or shape ???Skin changes, such as redness, thickening, or dimpling of the skin ???Swollen lymph nodes in the armpit ???Nipple problems, such as pain or redness If you find a lump Call your healthcare provider if you find lumpiness in one breast. Also call if you feel something different in the tissue or feel a definite lump. Sometimes lumpiness may be due to menstrual changes. But there may be reason for concern. Your healthcare provider may want to see you right away if you have: ???Nipple discharge that is bloody ???Skin changes on your breast, such as dimpling or puckering It???s OK to be upset if you find a lump. Be sure to call your healthcare provider right away. Remember that most breast lumps are benign. This means they are not cancer. ?? [id number] [employer]. All rights reserved. This information is not intended as a substitute for professional medical care. Always follow your healthcare professional's instructions. 01/16/2023 15:33:53 Breast Exam, Clinical Clinical Breast Exam Many health organizations recommend a yearly clinical breast exam. This exam may be done by a manager switch, family healthcare provider, nurse practitioner, nurse fish receiver, or specially trained nurse. Yearly breast exams help to??make sure??that breast conditions are found early. Your healthcare provider???s role A healthcare professional knows the tests and follow-up care needed if a problem is found. Your clinical exam is also a great time to ask questions about breast self-exams. You can find out if you???re checking your breasts in the best way. Or you may want to ask how , breast implants, or breast reduction surgery affect the way you should check your breasts. Diagnostic tests If a clinical exam reveals a breast change, you may have other tests to find out more. These tests may include: ???Mammography. A low-dose X-ray of your breast tissue. ???Ultrasound. An imaging test that uses sound waves to create images of your breast. ???Biopsy. A small amount of breast tissue is removed by needle or by a cut (incision). The tissue is then checked under a microscope. Guidelines for having clinical breast exams The [place] [employer] recommends that starting at age 29, you should have a clinical breast exam every 1 to 3 years. After age 40, have a clinical breast exam each year. If you???re at higher risk for breast cancer, you may need exams more often. Risk factors for breast cancer may include: ???Being over 50 or postmenopausal ???Having a family history of breast cancer ???Having the BRCA1 or BRCA2 gene mutation or certain other gene mutations ???Having more menstrual periods due to starting menstruation early??(before age 12) or having a late menopause (after age 55) ???Having no pregnancies ???Having a first after age 30 ???Being obese ???Having a history of radiation treatment to your chest area ???Exposure to KADE during your mother's ???Not being active ???Drinking too much alcohol ???Having dense breast tissue ???Taking hormone therapy after menopause Other health organizations have different recommendations. Talk with your healthcare provider aboutwhat is best for you. ?? 5703-4986 The [employer]. All rights reserved. This information is not intended as a substitute for professional medical care. Always follow your healthcare professional's instructions. 01/16/2023 15:33:48 Pap Test Pap Test Schedule your test for a time when you will not be having your menstrual period. If you???re menstruating at the time of your appointment, call your healthcare provider to ask if you should reschedule. For 48 hours before the test ???Don't douche. ???Don' use vaginal medicines, creams, or spermicides. For 24 hours before the test ???Don't have sex. How the test is done 1. You lie on an exam table with your feet in stirrups (foot rests). This is the usual position fora pelvic exam (an exam of the reproductive organs). 2. Your healthcare provider uses a speculum (a metal or plastic instrument) to gently open the vagina. 3. Cells are taken from the cervix with a small spatula or rubber broom. A small brush may then be used to remove cells from inside the cervical canal. You may feel pressure or slight discomfort. A speculum is used to open the vagina so cells can be taken from the cervix. Preserving the sample There are 2 ways to preserve the sample after it is taken: ???Traditional preservation.??With this method, the sample is smeared directly onto a glass microscope slide. The sample is then sent to a lab to be analyzed. ???Liquid-based preservation.??The sample is placed in a special preservative solution. At the lab,cervical cells are from blood and mucous cells and spread onto a slide. Screening for human papillomavirus (HPV)??can also be done using the same sample. After the test You???re free to go! There is a slight chance of light bleeding or spotting. Your healthcare provider will tell you when to expect your test results. Getting your results Ask your healthcare provider how you will receive your results. You should always obtain and understand results of any testing you have done. These may be obtained by phone, mail, or through online access if available: ???Normal result.??The cells in the sample appear healthy. Have your next Pap test as recommended by your healthcare provider. ???Abnormal result.??The lab saw something unusual in your sample. Talk with your healthcare provider about what the results mean. You may need to repeat the Pap test or have other tests to evaluate the problem.? [id number] The [employer]. All rights reserved. This information is not intended as a substitute for professional medical care. Always follow your healthcare professional's instructions. Patient Care team information Care Team Personnel Name: MD Fulton Lettie Member Role: Attributed Physician Address: Address: Irma Fulton MD [facility] [address], [address] [place] [address]- Name: MD Ozuna Soha A Position: Ambulatory Physician - RAILROAD SURVEYOR Member Role: OBGYN Address: Address: Miladys Ozuna MD [address] [place] [address] [address] [place] [address]-
--- OUTSIDE RECORDS SUMMARY | 2023-09-11 21:16 | XMS_ITS | Clinical Summary ---
Author Name Unknown Organization [facility] Address [address] [place] [id number] Care Team Providers Care Plasma Processor Name Role Phone Jacqueline Ash MD Primary Care Provider Unavaila ble Social History Tobacco Use Types Packs/Day Years Used Date Smoking Tobacco: Never Assessed Sex and Gender Information Value Date Recorded Sex Assigned at Not on file Gender Identity Not on file Sexual Orientation Not on file Plan of Treatment Health Maintenance Due Date Last Done Comments Hepatitis B Immunity 2000 COVID-19 Vaccine (#1) 04/14/2001 HPV Vaccines (1 - 2-dose series) 10/13/2011 Hepatitis C Screening 2018 DTaP, Tdap, and Td Vaccines (1 - Tdap) 10/13/2019 ANNUAL WOMEN PREVENTIVE CARE EXAM 2020 PAP SMEAR (3 YEAR) 2021 Influenza Vaccine (#1) 2023 Depression Screening 08/04/2023 Meningococcal Vaccine Aged Out No ann wenceslao eligible based on patient's age to complete this topic Pneumococcal Vaccines (0-64 years) Aged Out No longer eligible based on patient's age to complete this topic Care Teams Plasma Processor Relationship Specialty Start Date End Date Jacqueline Ash MD Your Doctor's Office PCP - General 08/31/07
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
--- OUTSIDE RECORDS SUMMARY | 2023-09-11 21:17 | XMS_ITS | Clinical Summary ---
Author Name Unknown Organization [facility] Address [address] [place] [address] Phone Care Team Providers Care Tin Stacker Name Role Phone Unavailable Primary Care Provider Unavailabl e Source Comments [employer] EMR is fully implemented at [facility] across theentire continuum of care.[facility] Social History Tobacco Use Types Packs/Day Years Used Date Smoking Tobacco: Never Assessed Sex and Gender Information Value Date Recorded Sex Assigned at Not on file Gender Identity Not on file Sexual Orientation Not on file Plan of Treatment Health Maintenance Due Date Last Done Comments Hep C Screening 2000 COVID-19 Vaccination (SARS-C oV-2) (#1) 04/14/2001 HPV Vaccine (1 - 2-dose series) 10/13/2011 Depression Assessment (PHQ 2 -9 / PHQ A / EPDS) 2012 Chlamydia Screening 2016 DTaP,Tdap,and Td Vaccines (1 - Tdap) 10/13/2019 Pap Smear 2021 Influenza Vaccine (#1) 2023 Pneumococcal Peds and High-R isk Adults Aged Out No longer eligible b ased on patient's age to complete this topic
--- OUTSIDE RECORDS SUMMARY | 2023-09-11 21:17 | XMS_ITS | Encounter Summary ---
Author Name Unknown Organization [facility] Address [address] [place] [id number] Care Team Providers Care Director Customer Name Role Phone Migdalia Zuniga MD Primary Care Provider [phone] Reason for Referral * Consultation and/or Follow-Up (Routine) - Authorized Specialty Diagnoses / Procedures Referred By Contac t Referred To Contact Obstetrics & Gynecology Diagnoses Primary oligomenorrhea Procedures OFFICE CONSULTATION,LEVEL V, MDM OR 55+ MINS OFFICE/OUTPT VISIT,EST,LEVL V, MDM OR 40-54 MINS Migdalia Zuniga MD [address] [place] [address] [facility] Contact Office for Address [place], [place] Referral ID Status Reason Start Date Expiration Date Visits Requested Visits Authorized [id number] Authorized Specialty Services Required 01/15/2023 01/15/2024 1 1 Reason for Visit * Reason Comments Follow-up Irregular Periods Encounter Details Date Type Department Care Team Description 01/15/2023 3:30 PM PDT Office Visit [facility] Family and Internal Medicine [address] [place] [id number] Migdalia Zuniga MD [address] [place] [phone] Primary oligomenorrhea (Primary Dx) Social History Tobacco Use Types Packs/Day Years Used Date Smoking Tobacco: Never Smokeless Tobacco: Never Alcohol Use Standard Drinks/Week Comments Not Currently 0 (1 standard drink = 0.6 oz pur e alcohol) Depression Risk (PHQ) Answer Date Recor ded Total Risk Score based on the patient's PHQ-9 if documented Not on file Total Risk Score based on th e patient's IP PHQ-2 if documented Not on file Total Risk Score based on the patient's PHQ-2 if documented Not on file Social Isolation Answer Date Recorded How often do you see or talk to people that you care about and feel close to? Not on file Sex and Gender Information Value Date Recorded Sex Assigned at Female 01/14/2023 10:04 PM PDT Gender Identity Female 01/14/2023 10:04 PM PDT Sexual Orientation Lesbian or [place] 01/14/2023 10 :04 PM PDT documented as of this encounter Last Filed Vital Signs Vital Sign Reading Time Taken Comments Blood Pressure 118/81 01/15/2023 3:36 PM PDT Pulse 79 01/15/2023 3:36 PM PDT Temperature 37 ??C (98.6 ??F) 01/15/2023 3:36 PM PDT Respiratory Rate 16 01/15/2023 3:36 PM PDT Oxygen Saturation 98% 01/15/2023 3:36 PM PDT Inhaled Oxygen Concentration - - Weight 54.3 kg (119 lb 12.8 oz) 01/15/2023 3:36 PM PDT Height 157.5 cm (5' 2) 01/15/2023 3:36 PM PDT Body Mass Index 21.91 01/15/2023 3:36 PM PDT documented in this encounter Progress Notes * Migdalia Zuniga MD - 01/15/2023 3:30 PM PDT [facility] Family & Internal Medicine Sameday Note PATIENT: Mayra Simpson : 2000 DATE OF SERVICE: 01/15/2023 PRIMARY CARE PROVIDER: Migdalia Zuniga MD PRIMARY CARE PROVIDER: Migdalia Zuniga MD Chief Complaint Patient presents with ??? Follow-up Irregular Periods Subjective: Mayra Simpson is a very pleasant 22 y.o. female who presents with the following: Irregular periods Has never had regular periods Last period was in September but skipped her period for three months But then end of december got it and has had one since Patient is not sexually active Long standing hx No New meds Plays tennis No acne No hirsutism Past Medical History: Diagnosis Date ??? ADHD on ritalin ??? Asthma , Past Surgical History: Procedure Laterality Date ??? FINGER SURGERY Left 09/04/2019 , Family History Problem Relation Age of Onset ??? Leukemia Maternal Grandfather ??? Colon cancer Neg Hx ? fhx on father's side ??? Breast cancer Neg Hx ??? Melanoma Neg Hx ??? Diabetes Neg Hx ??? Heart attack Neg Hx ??? Ovarian cancer Neg Hx ??? Stroke Neg Hx , Social History Socioeconomic History ??? Marital status: Single Tobacco Use ??? Smoking status: Never ??? Smokeless tobacco: Never Substance and Sexual Activity ??? Alcohol use: Not Currently ??? Drug use: Never ??? Sexual activity: Never Partners: Male, Female Social History Narrative Student: freshman Studying spanish / [employer] Diet: No special diet Exercise: plays tennis w/ dad, 3-4 days / week. In school 3 x / week Sleep pretty good. , Current Outpatient Medications Medication Sig ??? albuterol (2.5 mg/3mL) 0.083% nebulizer solution Take 3 mLs (2.5 mg total) by nebulization every six (6) hours as needed. ??? albuterol 90 mcg/act inhaler Inhale 2 puffs every six (6) hours as needed. ??? budesonide-formoterol 80-4.5 mcg/act inhaler Inhale 2 puffs two (2) times daily. ??? FASENRA 30 MG/ML injection ??? methylphenidate (RITALIN) 5 mg tablet Take 1 tablet (5 mg total) by mouth daily. Max Daily Amount: 5 mg ??? montelukast 10 mg tablet ??? propranolol 10 mg tablet No current facility-administered medications for this visit. and Actical, Acyclovir, Piperacillin, and Dogs Objective: VS: BP 118/81 Pulse 79 Temp 37 ??C (98.6 ??F) (Oral) Resp 16 Ht 5' 2 (1.575 m) Wt 119 lb12.8 oz (54.3 kg) SpO2 98% BMI 21.91 kg/m?? Body mass index is 21.91 kg/m??. Gen: WD/WN in NAD HEENT: NC/AT, sclerae anicteric Ext: warm and well-perfused. Neuro: Alert Psych: normal mood/affect LABS: Lab Results Component Value Date HCT 44.7 03/12/2021 HGB 14.2 03/12/2021 MCV 96.3 03/12/2021 PLT 278 03/12/2021 WBC 6.89 03/12/2021 Lab Results Component Value Date BUN 10 03/12/2021 CL 105 03/12/2021 CO2 25 03/12/2021 CREAT 0.57 (L) 03/12/2021 K 4.5 03/12/2021 NA 141 03/12/2021 Lab Results Component Value Date ALKPHOS 59 03/12/2021 ALT 10 03/12/2021 AST 24 03/12/2021 BILITOT 0.6 03/12/2021 Assessment & Plan: Mayra Simpson is a 22 y.o. female 1. Primary oligomenorrhea Pending appt with under cutter Would check fsh, estradiol, tsh, prolactin, testosterone But would defer to under cutter - Referral to Obstetrics & Gynecology Diagnoses and all orders for this visit: Primary oligomenorrhea - Referral to Obstetrics & Gynecology There are no Patient Instructions on file for this visit. The above plan of care, diagnosis, order, and follow-up were discussed with the patient. Questions related to this recommended plan of care were answered. Author: Migdalia Zuniga 01/15/2023 3:45 PM documented in this encounter Plan of Treatment Scheduled Referrals Name Type Priority Associated Diagnoses Orde r Schedule Referral to Obstetrics & Gynecology Outpatient Referral Routine Primary oligomenorrhea Ordered: 01/15/2023 documented as of this encounter Visit Diagnoses Diagnosis Primary oligomenorrhea- Primary Scanty or infrequent menstruation documented in this encounter Care Teams Director Customer Relationship Specialty Start Date End Date Migdalia Zuniga MD [address] [place] [address] PCP - General Internal Medicine 04/21/20 documented as of this encounter Additional Source Comments Request medical records from [facility] directly by faxing your request to . Please call for additional information and assistance.[facility]
--- OUTSIDE RECORDS SUMMARY | 2023-09-11 21:17 | XMS_ITS | Clinical Summary ---
Author Name Unknown Organization [facility] Address [address] [place] [address] Care Team Providers Care Coil Machine Supervisor Name Role Phone Migdalia Zuniga MD Primary Care Provider [phone] Source Comments IMPORTANT WARNING: This document is intended for the use of the person orentity to which it is addressed and may contain information that is privilegedand confidential, the disclosure of which is governed by applicable law. If youare not the intended recipient, or the employee or agent responsible to deliverit to the intended recipient, you are notified that any dissemination,distribution or copying of this information is STRICTLY PROHIBITED. If you havereceived this communication in error, please immediately notify us by telephoneat [phone] and return this original message or destroy it.[facility] Allergies Active Allergy Reactions Criticality Noted Date Comments Actical Cough,Shortness Of Breath,Wheezing High 1 09/07/2019 Acyclovir 10/20/2020 Dogs Hives,Rash Low 07/07/2020 Piperacillin 10/20/2020 Tree Nuts Anaphylaxis,Shortness Of Breath High 05/0 01/2022 Medications Medication Sig Dispensed Refills Start Date End Date Status FASENRA 30 MG/ML injection 0 01/26/2020 Active montelukast 10 mg tablet 0 Active budesonide-formoter ol 80-4.5 mcg/act inhaler Inhale 2 puffs two (2) times daily. 0 Active albuterol 90 mcg/act inhaler Inhale 2 puffs every six (6) hours as needed. 0 Active albuterol (2.5 mg/3mL) 0.083% nebulizer solution Take 3 mLs (2.5 mg total) by nebulization every six (6) hours as needed. 0 Active escitalopram 10 mg tablet Take 1 tablet (10 mg total) by mouth daily. 0 02/13/2023 Active BREO ELLIPTA 200-25 MCG/ACT inhaler 0 03/29/2023 Active albuterol 1.25 mg/3 mL nebulizer solution ONE PREMIXED VIAL BY NEBULIZER UP TO 4 TIMES A DAY IF NEEDED FOR QUICK RELIEF ONLY 0 03/15/2023 Active Active Problems Problem Noted Date Diagnosed Date Attention deficit hyperactivity disorder (ADHD) 07/07/2020 Overview: takes ritalin once / day has been on it since 5th grade usually only takes during school days no changes in dosage. no difficulty with sleep. tolerating Asthma Immunizations Name Administration Dates Next Due COVID-19, mRNA, (Moderna) 10 0 mcg/0.5 mL 10/20/2020 DTaP 11/16/2004, 2,04/20/2001,02/13,2000 HPV 9-valent vaccine IM (Gar dasil 9) (PF) SYR/SDV (9-15 years of age boys) (9-26 years of age girls/women) 11/06/2016 HPV, NOS 11/06/2016,01/19/2016,10/31/2015 Hepatitis A, Pediatric/adole scent 2 Dose 12/07/2003,12/07/2002 Hib (PRP-T) 09/30/2005, 1,02/13/2001,12/16 IPV 11/16/2004, 2,03/17/2001,01/12 Influenza vaccine IM quadriv alent (Afluria Quad) (PF) SYR (3 years of age and older) 05/28/2019 MMR 11/16/2004,10/20/2001 MenB, OMV (Bexsero) 02/22/2020,01/21/2020 Palivizumab 11/08/2002, 3,09/10/2002,08/06,07/09/2002,06/11/2002,05/12/2002 Tdap 11/11/2011 hepatitis b vaccine IM Pediatric/Adolescent 3-dose 08/07/2001,03/17/2001,2000 influenza vaccine IM cell cu lture quadrivalent (Flucelvax QUAD) (PF) SYR (6 months of age and older) 06/05/2018 influenza, unspecified formulation 03/28,05/28/2019,08/02/2017,05/04,05/29/2012,04/22/2011,06/08/2010 ,04/29/2008,05/09/2007,05/08/2006,04/05,05/10/2004 meningococcal conjugate 4-va lent (Menactra) IM MCV4P 11/06/2016,11/11/2011 meningococcal conjugate 4-va lent (Menveo 2-vial) IM MCV4O 11/06/2016 meningococcal polysaccharide (MPSV4) 11/11/2011 pneumococcal conjugate vacci ne 13-valent (Prevnar) 12/16/2019,11/05/2010 pneumococcal conjugate vacci ne 7-valent 04/14/2002 pneumococcal polysaccharide vaccine 23-valent (Pneumovax) 02/22/2020,11/05/2010,10/28/2006 varicella vaccine (Varivax) 10/28/2006, 2 Family History Medical History Relation Name Comments Leukemia Maternal Grandfather 92 Breast cancer Neg Hx Colon cancer Neg Hx ? fhx on father 's side Diabetes Neg Hx Heart attack Neg Hx Melanoma Neg Hx Ovarian cancer Neg Hx Stroke Neg Hx Relation Name Status Comments Father Alive Maternal Grandfather 92 Maternal Grandmother Alive Mother Alive Paternal Grandfather Alive Paternal Grandmother Alive Sister 1 Alive Sister 2 Alive Social History Tobacco Use Types Packs/Day Years Used Date Smoking Tobacco: Never Smokeless Tobacco: Never Tobacco Cessation:Counseling Given: Not Answered Alcohol Use Standard Drinks/Week Comments Not Currently [...] or [place]rbina 01/14/2023 10 :04 PM PDT Last Filed Vital Signs Vital Sign Reading Time Taken Comments Blood Pressure 122/78 03/31/2023 11:20 AM PDT Pulse 88 03/31/2023 11:20 AM PDT Temperature 36.8 ??C (98.2 ??F) 03/31/2023 11:20 AM P DT Respiratory Rate 16 01/15/2023 3:36 PM PDT Oxygen Saturation 98% 03/31/2023 11:20 AM PDT Inhaled Oxygen Concentration - - Weight 54 kg (119 lb) 03/31/2023 11:20 AM PDT Height 157.5 cm (5' 2) 03/31/2023 11:20 AM PDT Body Mass Index 21.77 03/31/2023 11:20 AM PDT Plan of Treatment Health Maintenance Due Date Last Done Comments Chlamydia/GC Screening 2016 HIV Screening 2018 Hepatitis B Screening 2018 Hepatitis C Screening 2018 Cervical Ca Screening: PAP Smear 2021 Tdap/Td Vaccine (2 - Td or Tdap) 11/10/2021 11/11/19 12 Influenza Vaccine (#1) 2023 , 05/17/2021, 03/28/2020, Additional history exists COVID-19 Vaccine(Tracks prim precious and booster doses, not sup/immunocomp) ( season) 2023 08/04/2023, 07/18/2022, 01/25/2022, Additional history exists HPV Vaccines Completed 11/06/2016, 12/2016, 01/19/2016, Additional history exists Care Teams Coil Machine Supervisor Relationship Specialty Start Date End Date Migdalia Zuniga MD [facility] [facility]. [address] [place], [place] [id number] PCP - General Internal Medicine 04/21/20 Additional Source Comments Request medical records from [facility] directly by faxing your request to . Please call for additional information and assistance.[facility]
--- OUTSIDE RECORDS SUMMARY | 2023-09-11 21:17 | XMS_ITS | Clinical Summary ---
Author Name Unknown Organization [facility] [place] [address] Care Team Providers Care Manager Card Name Role Phone Unavailable Primary Care Provider Unavailabl e Social History Tobacco Use Types Packs/Day Years Used Date Smoking Tobacco: Never Assessed Sex and Gender Information Value Date Recorded Sex Assigned at Not on file Gender Identity Not on file Sexual Orientation Not on file Plan of Treatment Health Maintenance Due Date Last Done Comments COVID-19 Vaccine (#1) 04/14/2001 Vaccine: HPV (1 - 2-dose series) 10/13/2011 Vaccine: Dtap/Tdap/Td (1 - Tdap) 10/13/2019 Cervical Cancer Screening (Pap/HPV) 2021 Vaccine: Influenza (#1) 2023
--- OUTSIDE RECORDS SUMMARY | 2023-09-11 21:17 | XMS_ITS | Encounter Summary ---
Author Name Unknown Organization [facility] Address [address] [place] [address] Care Team Providers Care Supervisor [employer] Name Role Phone Migdalia Zuniga MD Primary Care Provider [phone] Encounter Details Date Type Department Care Team Description 03/21/2002 Orders Only Converted [facility] NayaDoris dawkins [place] [address] Social History Tobacco Use Types Packs/Day Years Used Date Smoking Tobacco: Never Assessed Sex and Gender Information Value Date Recorded Sex Assigned at Female 01/14/2023 10:04 PM PDT Gender Identity Female 01/14/2023 10:04 PM PDT Sexual Orientation Lesbian or [place] 01/14/2023 10 :04 PM PDT documented as of this encounter Miscellaneous Notes * ED Packet - Provider, MD Esteban - 03/21/2002 12:00 AM PDT documented in this encounter Plan of Treatment Not on file documented as of this encounter Procedures Procedure Name Priority Date/Time Associated Diagnosis Comments XR CHEST AP ONLY 1V 03/21/2002 1 2:18 PM PDT documented in this encounter Results * XR Chest AP Only (03/21/2002 12:18 PM PDT) Anatomical Region Laterality Modality Chest Radiographic Sapna ging 03/21/2002 12:1 8 PM PDT Narrative 03/24/2002 11:48 PM PDT [facility] RADIOLOGICAL REPORT CHEST, SINGLE VIEW: ??03/21/2002 CLINICAL HISTORY: ?? Wheezing. FINDINGS: ?? The lungs are clear. ??The peribronchial architecture is somewhat prominent. ??Heart size is normal. ??The costophrenic sulci are within normal limits. CONCLUSION(S): ?? There is no pulmonary infiltrate noted. Procedure Note Chelsey Magallanes MD - 07/17/2012 [facility] RADIOLOGICAL REPORT CHEST, SINGLE VIEW: 03/21/2002 CLINICAL HISTORY: Wheezing. FINDINGS: The lungs are clear. The peribronchial architecture is somewhat prominent. Heart size is normal. The costophrenic sulci are within normal limits. CONCLUSION(S): There is no pulmonary infiltrate noted. Doris Person [facility] DIAGNOSTIC IMAGI NG ORDERABLES documented in this encounter Visit Diagnoses Not on filedocumented in this encounter Care Teams Supervisor [employer] Relationship Specialty Start Date End Date Migdalia Zuniga MD [facility] [address] [place] [address] PCP - General Internal Medicine 04/21/20 documented as of this encounter Additional Source Comments Request medical records from [facility] directly by faxing your request to . Please call for additional information and assistance.[facility]
--- OUTSIDE RECORDS SUMMARY | 2023-09-11 21:17 | XMS_ITS | Encounter Summary ---
Author Name Unknown Organization [facility] Address [address] [place] [id number] Care Team Providers Care Fabric Machine Operator Name Role Phone Migdalia Zuniga MD Primary Care Provider [phone] Reason for Visit * Reason Comments Establish Care Encounter Details Date Type Department Care Team Description 03/31/2023 11:20 AM PDT Office Visit [facility] Endocrinology [address] [place] [address] Jostin Martion MD [address] [place] [address] [address] [place] [address] Oligomenorrhea, unspecified type (Primary Dx) Social History Tobacco Use Types [...] 03/31/2023 11:20 AM P DT Respiratory Rate - - Oxygen Saturation 98% 03/31/2023 11:20 AM PDT Inhaled Oxygen Concentration - - Weight 54 kg (119 lb) 03/31/2023 11:20 AM PDT Height 157.5 cm (5' 2) 03/31/2023 11:20 AM PDT Body Mass Index 21.77 03/31/2023 11:20 AM PDT documented in this encounter Patient Instructions * Patient Instructions* Jostin Martino MD - 03/31/2023 11:20 AM PDT We will have labs available for you to do to check your hormone levels. Based on how things progress, please keep me posted on when you would like to follow up and we can determine next steps in management. documented in this encounter Progress Notes * Jostin Martino MD - 03/31/2023 11:20 AM PDT ENDOCRINOLOGY CLINIC NOTE PATIENT: Mayra Simpson : 2000 DATE OF SERVICE: 03/31/2023 REFERRING PRACTITIONER: Jostin Martino MD PRIMARY CARE PROVIDER: Migdalia Zuniga MD REASON FOR REFERRAL: primary oligomenorrhea Problem: Mayra Simpson is a 22 y.o. female who presents for consultation regarding primary oligomenorrhea. #Oligomenorrhea Age of Menarche: 14 years Menstrual Cycles: past year has been without a cycle Aug to Nov, and then regular in February and March. She is less stressed in college, sleeping and eating better. Other stages of puberty: Growth spurt: normal (is height similar to rest of family) Development of axillary and pubic hair: normal Breast development: normal Family Hx of delayed puberty: denies Interested in fertility: No, not on control Hirsutism/Acne: normal, acne is worse during periods Medications: Lexapro, Singulair, Alisha-Ellipta, Albuterol, Fasenra Denies galactorrhea, changes in vision Patient regularly plays tennis. She had pelvic US at [facility] which showed polycystic ovaries but report not available on [facility] or Care Everywhere. She was told that she likely has PCOS but since then has been having regular periods. She denies any terminal hair growth. Her weight is stable. Labs on initial exam: 12/2022: A1c 5.1%, DHEA-S 202, TSH 1.15, FSH 6.5, LH 21.81, Estradiol 36.8, PRL 11.8, Total Testosterone 50, Free Testosterone 1.09 (0.13 - 1.08) ROS: Additional ROS complete and negative unless reported otherwise above. Past Medical History: Past Medical History: Diagnosis Date ??? ADHD on ritalin ??? Asthma Past Surgical History: Past Surgical History: Procedure Laterality Date ??? FINGER SURGERY Left 09/04/2019 Medications: Medications that the patient states to be currently taking Medication Sig ??? albuterol (2.5 mg/3mL) 0.083% nebulizer solution Take 3 mLs (2.5 mg total) by nebulization every six (6) hours as needed. ??? albuterol 1.25 mg/3 mL nebulizer solution ONE PREMIXED VIAL BY NEBULIZER UP TO 4 TIMES A DAY IFNEEDED FOR QUICK RELIEF ONLY ??? albuterol 90 mcg/act inhaler Inhale 2 puffs every six (6) hours as needed. ??? BREO ELLIPTA 200-25 MCG/ACT inhaler ??? budesonide-formoterol 80-4.5 mcg/act inhaler Inhale 2 puffs two (2) times daily. ??? escitalopram 10 mg tablet Take 1 tablet (10 mg total) by mouth daily. ??? FASENRA 30 MG/ML injection ??? montelukast 10 mg tablet Allergies: Allergies Allergen Reactions ??? Actical Cough, Shortness Of Breath and Wheezing ??? Tree Nuts Anaphylaxis and Shortness Of Breath ??? Acyclovir ??? Piperacillin ??? Dogs Hives and Rash Social History: Social History Socioeconomic History ??? Marital status: Single Tobacco Use ??? Smoking status: Never ??? Smokeless tobacco: Never Substance and Sexual Activity ??? Alcohol use: Not Currently ??? Drug use: Never ??? Sexual activity: Never Partners: Male, Female Social History Narrative Student: freshman Studying [employer] / [employer] Diet: No special diet Exercise: plays tennis w/ dad, 3-4 days / week. In school 3 x / week Sleep pretty good. Family History: Family History Problem Relation Age of Onset ??? Leukemia Maternal Grandfather ??? Colon cancer Neg Hx ? fhx on father's side ??? Breast cancer Neg Hx ??? Melanoma Neg Hx ??? Diabetes Neg Hx ??? Heart attack Neg Hx ??? Ovarian cancer Neg Hx ??? Stroke Neg Hx Objective: Vitals: BP 122/78 Pulse 88 Temp 36.8 ??C (98.2 ??F) (Forehead) Ht 5' 2 (1.575 m) Wt 119 lb(54 kg) SpO2 98% BMI 21.77 kg/m?? Wt Readings from Last 3 Encounters: 03/31/23 119 lb (54 kg) 01/15/23 119 lb 12.8 oz (54.3 kg) 03/12/21 110 lb (49.9 kg) Body mass index is 21.77 kg/m??. GEN: NAD, alert, appears stated age Ears/nose/throat: Mucous membranes moist. Neck: No apparent thyromegaly or lymphadenopathy. Respiratory: normal respiratory rate and chest wall excursion. Cardiovascular: not examined. GI: appears nondistended. Musculoskeletal: extremities without obvious pitting edema. Neurologic: Patient is alert and oriented x3 and there is no focal strength deficit. Skin: no rashes, cuts, sores. Labs: CBC Lab Results Component Value Date WBC 6.89 03/12/2021 HGB 14.2 03/12/2021 HCT 44.7 03/12/2021 MCV 96.3 03/12/2021 PLT 278 03/12/2021 BMP Lab Results Component Value Date NA 141 03/12/2021 K 4.5 03/12/2021 CL 105 03/12/2021 CO2 25 03/12/2021 BUN 10 03/12/2021 CREAT 0.57 (L) 03/12/2021 GLUCOSE 84 03/12/2021 Ca/ Mg/ Phos/Zinc/Copper Lab Results Component Value Date CALCIUM 9.9 03/12/2021 ALBUMIN 4.6 03/12/2021 Lipids Lab Results Component Value Date CHOL 109 03/12/2021 TRIGLY 42 03/12/2021 CHOLHDL 64 03/12/2021 NOHDLCHOCAL 45 03/12/2021 CHOLDLCAL 37 03/12/2021 HbA1c Lab Results Component Value Date HGBA1C 5.5 03/12/2021 No results for input(s): GLUCOSE in the last 72 hours. No results for input(s): GLUCOSEPOC in the last 72 hours. No results for input(s): INSULIN, CPEPTIDE in the last 72 hours. PTH / VitaminD No results found for: [id number], PTHINT LFT Lab Results Component Value Date ALT 10 03/12/2021 AST 24 03/12/2021 ALKPHOS 59 03/12/2021 BILITOT 0.6 03/12/2021 Creatinine Lab Results Component Value Date CREAT 0.57 (L) 03/12/2021 Lab Results Component Value Date GFRESTNOAA >89 03/12/2021 GFRESTAA >89 03/12/2021 Endocrine Lab Results Component Value Date TSH 1.1 03/12/2021 Imaging: Assessment & Plan/Recommendations: #Oligomenorrhea Evaluation for PCOS Ddx includes physiologic delay due to chronic systemic disease, functional hypothalamic amenorrhea,PCOS (too young to make diagnosis), and even less likely prolactinoma, CAH. Patient is not sexuallyactive and is a lesbian so there is low concern for . While PCOS may still be in the differential, she is still young and varying stressors may be affecting the regularity of her menstrual cycle and may confound the pelvic US results. - Order FSH, LH, Estradiol, PRL, AMH, A1c, 17-OHP and total testosterone - Given regularization of periods, lack of insulin resistance and androgenic hair growth or acne, will hold off on COCs at this time. - Given normal A1c, will hold off on metformin therapy PROBLEMS REVIEWED [] 1+ chronic illness with exacerbation/progression/side effects of treatment [] 2 stable chronic illnesses [x] 1 undiagnosed new problem with uncertain prognosis [] 1 acute illness with systemic symptoms ICD-10-CM 1. Oligomenorrhea, unspecified type N91.5 LH FSH 17-Alpha-OH Progesterone Estradiol Comprehensive Metabolic Panel CBC & Auto Differential Anti-Mullerian Hormone Testosterone, Free and Total, Includes Sex Hormone-Binding Globulin (Adult Females, Children, or Individuals on Testosterone-Suppressing Hormone Therapy) (Sendout) REVIEW OF DATA I have: Reviewed [] 1 [] 2 [x] ? 3 unique laboratory, radiology, and/or diagnostic tests Reviewed [x] 1 [] 2 [] ? 3 prior external notes and incorporated into patient assessment Ordered [] 1 [] 2 [x] ? 3 unique laboratory, radiology, and/or diagnostic tests [] 1 Obtained assessment from an independent historian [] Discussed management or test interpretation with external provider(s) RISK OF COMPLICATION This show card writer has deemed the above diagnoses to have a risk of complication, morbidity or mortality of: [] Minimal [] Low [x] Moderate (prescription drug, decision regarding surgery, social determinants) [] Severe (decision regarding hospitalization) The above recommendation were discussed with the patient. The patient has all questions answered satisfactorily and is in agreement with this recommended plan of care. Return if menstrual cycles become more distressing. Author: Jostin Martino 03/31/2023 11:53 AM documented in this encounter Plan of Treatment Scheduled Orders Name Type Priority Associated Diagnoses Orde r Schedule LH Lab Routine Oligomenorrhea, unspecified type 1 Occurrences starting 03/31/2023 until 03/30/2024 FSH Lab Routine Oligomenorrhea, unspecified type 1 Occurrences starting 03/31/2023 until 03/30/2024 17-Alpha-OH Progesterone Lab Routine Oligomenorrhea, unspecified type 1 Occurrences starting 03/31/2023 until 03/30/2024 Estradiol Lab Routine Oligomenorrhea, unspecified type 1 Occurrences starting 03/31/2023 until 03/30/2024 Comprehensive Metabolic Panel Lab Routine Oligomenorrhea, unspecified type 1 Occurrences starting 03/31/2023 until 03/30/2024 CBC & Auto Differential Lab Routine Oligomenorrhea, unspecified type 1 Occurrences starting 03/31/2023 until 03/30/2024 Anti-Mullerian Hormone Lab Routine Oligomenorrhea, unspecified type 1 Occurrences starting 03/31/2023 until 03/31/2024 Testosterone, Free and Total, Includes Sex Hormone-Binding Globulin (Adult Females, Children, or Individuals on Testosterone-Suppressing Hormone Therapy) (Sendout) Lab Routine Oligomenorrhea, unspecified type 1 Occurrences starting 03/31/2023 until 03/31/2024 documented as of this encounter Visit Diagnoses Diagnosis Oligomenorrhea, unspecified type- Primary documented in this encounter Care Teams Fabric Machine Operator Relationship Specialty Start Date End Date Migdalia Zuniga MD [address] [facility] [place] [address] PCP - General Internal Medicine 04/21/20 documented as of this encounter Additional Source Comments Request medical records from [facility] directly by faxing your request to . Please call for additional information and assistance.[facility]
--- OUTSIDE RECORDS SUMMARY | 2023-09-11 21:17 | XMS_ITS | Clinical Summary ---
Author Name Unknown Organization [facility] Address [address] [place] [address] Care Team Providers Care Forest Ecology Professor Name Role Phone Unavailable Primary Care Provider Unavailabl e Source Comments NOTE: The information displayed by Care Everywhere is extracted from the complete medical record and may not identify all current or past patient conditions.[facility] Allergies Active Allergy Reactions Criticality Noted Date Comments Acyclovir 10/20/2020 Nuts Medium 10/20/2020 Piperacillin Sodium 10/20/2020 Immunizations Name Administration Dates Next Due COVID-19 mRNA LNP-S, PF (Moderna) 10/20/2020 11/17/2020 DTaP (Diphtheria, Tetanus, a cellular Pertussis) 11/16/2004,04/14/2002,04/20/2001,02/13,2000 HAV ped/adol 2 dose ed (Hep atitis A) 12/07/2003,12/07/2002 HBV ped/adol, 3dose ed (Hep atitis B) 08/07/2001,03/17/2001,2000 HIB HbOC (Haemophilus influenzae b) 09/30/2005,0 04/20/2001,02/13/2001 HIB PRP-T (Haemophilus influenzae b) 2000 HPV (Human papillomavirus) unspecified formulation 11/06/2016,01/19/2016,10/31/2015 INF (Influenza) unspecified formulation 03/28/2020,05/04/2016 INFS Pres Free (quadrivalent ) (influenza) 05/28/2019 INFS seasonal unspecified 08/02/2017,,04/22/2011,06/08,04/29/2008,05/09/2007,05/08/2006 ,05/01/2005,05/10/2004 MEN-B (BEXSERO)(Meningococcal B) OMV 02/22/2020, 01/21/2020 MENcn-ACYW (Meningococcal co njugate, groups ACYW-135) 11/06/2016,11/11/2011 MENps (MENOMUNE) (Meningococ arash polysaccharide) 11/11/2011 MMR (Measles, Mumps, Rubella) 11/16/2004, 002 PNUcn13 (PREVNAR 13) (Pneumo coccal conjugate, 13 valent) 12/16/2019,11/05/2010 PNUcn7 (PREVNAR) (Pneumococc al conjugate, 7 valent) 04/14/2002 PAUL-IPV (Polio, Inactivated virus) 11/16,04/14/2002,03/17/2001,01/12 PPSV23 (Pneumococcal polysaccharide) 02/22/2020, 11/05/2010,10/28/2006 RSVmab (Respiratory syncytia l virus monoclonal antibody, intramuscular) 11/08/2002,10/08/2002,09/10/2002,08/06,07/09/2002,06/11/2002,05/12/2002 Tdap (Tetanus, diphtheria, a cellular pertussis) 11/11/2011 AFTAB (Varicella, chickenpox) 10/28/2006, 2 infs pres free 4yrs-adult (f lucelvax quadrivalent) (influenza) 06/05/2018 Social History Tobacco Use Types Packs/Day Years Used Date Smoking Tobacco: Never Assessed Sex and Gender Information Value Date Recorded Sex Assigned at Not on file Gender Identity Not on file Sexual Orientation Not on file Plan of Treatment Health Maintenance Due Date Last Done Comments CERVICAL CA SCREENING 2021 IMM DTAP,TDAP,TD (42 DAYS-12 0 YRS) (7 - Td or Tdap) 11/10/2021 11/11/2011, 11/16/2004, 04/14/2002, Additional history exists IMM COVID-19 (6 MO AND OLDER ) (2 - 2022- season) 2023 10/20/2020 IMM INFLUENZA (6 MO AND OLDE R) (#1) 04/04/2023 03/28/2020, 05/28/2019, 06/05/2018, Additional history exists IMM HPV (9-26 YRS) Completed 11/06/2016, 0 01/19/2016, 10/31/2015
[2023-09-11 21:46] VITALS: BP 118/74; PULSE 112; RESP 20; TEMP 37.8; O2SAT 99
== END 2023-09-11 21:47 | disposition home or self-care (01) ==
PROVIDERS: Emergency Provider Student in an Organized Health Care Education/Training Program; PCP Family Medicine
DX: J10.1 Influenza due to other identified influenza virus with other respiratory manifestations (principal)
CPT/HCPCS: 87631; 94640; 99283; A9270

== ENCOUNTER 2023-10-13 11:15 | Outpatient (RCR) | payer BC, SELFPAY | END 2023-10-14 10:02 | disposition home or self-care (01) | PROVIDERS: PCP Family Medicine; Visit Provider Family Medicine | DX: S06.0X0D Concussion without loss of consciousness, subsequent encounter (principal); R42 Dizziness and giddiness; R26.81 Unsteadiness on feet; Z51.89 Encounter for other specified aftercare | CPT/HCPCS: 97110; 97161 ==